=== PATIENT | female | born 1955 | race Caucasian/White ===

== ENCOUNTER 2018-01-02 17:51 | Inpatient (IN) | payer BC, MEDICARE ==
[2018-01-02] MEDS ORDERED: OXYMETAZOLINE NASAL SPRAY 15 ML BTTL ONE (18:01)
[2018-01-02] MEDS ORDERED: SODIUM CHLORIDE 0.9% 1000ML 1,000 ML IVS ONE (18:28)
--- NOTE | 2018-01-02 18:38 | ED.PDOC ---
History of Present Illness - General Chief Complaint: General Stated Complaint: Bleeding from nose/mouth and eyes Time Seen by Provider: 01/02/18 17:55 Source: patient Exam Limitations: no limitations - History of Present Illness Initial Comments: The patient is a 62-year-old female presenting to the emergency room secondary to epistaxis out of the left nares the last one half to one hour. She has had mild nosebleeds bleeds before in the distant past. No recent hemorrhages. No oral petechiae. No easy bruising. She did have shoulder surgery approximately one week ago on the right side. She does take Plavix and aspirin as well as Ranexa. No difficulties with breathing. No chest pain. She did receive 2 units of packed red blood cells after the shoulder surgery according to her and her family. No history of any platelet dysfunction or bleeding diatheses otherwise. No palpitations. She does have a history of some recent worsening of her chronic renal insufficiency. No bleeding from the gums. No history of bleeding in the urine. Timing/Duration: 1/2 hour Severity: mild Improving Factors: nothing Worsening Factors: nothing Associated Symptoms: denies symptoms Allergies/Adverse Reactions: Allergies NO KNOWN ALLERGY Allergy (Verified 07/04/14 21:05) Review of Systems - Review of Systems Constitutional: States: no symptoms reported EENTM: States: see HPI Respiratory: States: no symptoms reported Cardiology: States: no symptoms reported Gastrointestinal/Abdominal: States: no symptoms reported Genitourinary: States: no symptoms reported Musculoskeletal: States: see HPI Skin: States: no symptoms reported Neurological: States: no symptoms reported Endocrine: States: no symptoms reported All other Systems: No Change from Baseline Past Medical History (General) - Patient Medical History Hx Stroke: No Hx Cardiac Disorders: Yes - hypercholesterolemia Hx Congestive Heart Failure: No Hx Hypertension: Yes Hx Diabetes: Yes Hx MRSA: Yes - Skin 2010 MRSA Source:: Wound Surgical History: other - Social History Hx Tobacco Use: No - Activities of Daily Living [facility]if applicable[facility] [place] Family Medical History - Family History Mother Living Status: Hx Family Congestive Heart Failure: Yes Physical Exam - Physical Exam General Appearance: Alert, Comfortable, No apparent distress Eye Exam: bilateral normal - he does have some blood coming back of the left lacrimal duct. Ears, Nose, Throat: hearing grossly normal, normal pharynx, other - she does have epistaxis from the left nares. The source is far enough back that I cannot localize it for direct treatment. Neck: full range of motion, supple Respiratory: lungs clear, normal breath sounds, no respiratory distress, no accessory muscle use Cardiovascular/Chest: normal peripheral pulses, no edema, other - regular rate Peripheral Pulses: radial,right: 2+, radial,left: 2+ Gastrointestinal/Abdominal: non tender, soft Rectal Exam: deferred Back Exam: normal inspection Extremity: other - decreased movement of the right upper extremity. Operative site bandage is still in place in the right shoulder. She does have trace edema bilateral lower extremities. Capillary refills less than 2 seconds. Neurologic: loss prevention auditor II-XII nml as tested, alert, normal mood/affect, oriented x 3 Skin Exam: pallor - mild Comments: Vital Signs - 24 hr 01/02/18 01/02/18 18:07 18:38 Temperature 99.5 F Pulse Rate [ 60 60 Left Radial] Respiratory 20 20 Rate Blood Pressure 147/63 148/59 [Left Arm] O2 Sat by Pulse 96 94 L Oximetry Progress - Progress Progress: 01/02/18 18:39 the patient is a 62-year-old female presenting with epistaxis of the left nares far enough back that it cannot be directly treated. External compression fails to control the bleeding. Nasal packing did have to be applied. 12 cc of air were put into the compression packing. Up to another 8 cc can be used if necessary. The patient also failed a trial of Afrin. Blood work shows adequate platelets and a fairly normal PT and PTT. Hemoglobin and hematocrit were 8 and 24. BUN and creatinine were 33 and 1.9 respectively. The patient needs to increase her fluid intake. The patient does need to have her CBC and Chem-8 repeated in the next 3 or 4 days to make sure there is no worsening in these areas. The packing needs to come out in 48-72 hours after soaking with saline and deflating. [place] nasal spray can be used for 5 times daily afterwards to prevent further bleeding. She does need to hold her aspirin and Plavix for the next 3-5 days. admission for observation was offered given her comorbidities. The patient did defer .ER warnings were given for any significant worsening. Departure - Departure Clinical Impression: Left-sided epistaxis Disposition: Discharge to Home or Self Care Condition: Fair Departure Forms: ED Discharge - Pt. Copy, Patient Portal Self Enrollment Instructions: DI for Nosebleed Diet: regular diet Activity: increase activity as tolerated Referrals: ANY COLLINS [Primary Care Provider] - 1-5 Days Additional Instructions: the patient is a 62-year-old female presenting with epistaxis of the left nares far enough back that it cannot be directly treated. External compression fails to control the bleeding. Nasal packing did have to be applied. 12 cc of air were put into the compression packing. Up to another 8 cc can be used if necessary. The patient also failed a trial of Afrin. Blood work shows adequate platelets and a fairly normal PT and PTT. Hemoglobin and hematocrit were 8 and 24. BUN and creatinine were 33 and 1.9 respectively. The patient needs to increase her fluid intake. The patient does need to have her CBC and Chem-8 repeated in the next 3 or 4 days to make sure there is no worsening in these areas. The packing needs to come out in 48-72 hours after soaking with saline and deflating. [place] nasal spray can be used for 5 times daily afterwards to prevent further bleeding. She does need to hold her aspirin and Plavix for the next 3-5 days. admission for observation was offered given her comorbidities. The patient did defer .ER warnings were given for any significant worsening.
--- NOTE | 2018-01-02 20:10 | HP ---
SUPERVISING PHYSICIAN: Hamilton Sim MD CHIEF COMPLAINT: Left naris nosebleed. HISTORY OF PRESENT ILLNESS: This is a 62-year-old female patient who had right shoulder surgery in [place] at [facility] on Wednesday. She was to be discharged from the hospital on Wednesday, but due to her worsening kidney function, which is chronic in nature and postsurgical blood loss, she was not discharged until . She received 2 units of packed red blood cells due to her postoperative blood loss. She lives in [place], but she was discharged to [facility] for rehab. Today, she came to the Emergency Room and had had bleeding from her left naris for about an hour prior to her admission to the Emergency Room. She has a history of nosebleeds in the past. Afrin was used and was unsuccessful. Nasal packing was put in the left naris. Her bleeding stopped, but her lab work showed a hemoglobin of 8.2 with hematocrit of 24.1. Her platelet count was slightly high at 437 with PT at 12.7 , INR 1.13. PT-T was 32.5. Sodium 136, potassium 4.5, chloride 106, carbon dioxide 21, BUN 47, creatinine 1.93, baseline creatinine is about 1.3 to 1.4. Glucose 152. Due to her recent surgery with postoperative anemia as well as the epistaxis and given that she has a low hemoglobin and hematocrit, I was called for admission to the hospital. PAST MEDICAL HISTORY: 1. Chronic renal disease with baseline creatinine of 1.3 to 1.4. 2. Depression with anxiety. 3. Restless leg syndrome. 4. Asthma. 5. Hypertension. 6. Myocardial infarction times three. 7. Diabetes mellitus, type 2, on insulin therapy. 8. Gastroesophageal reflux disease. PAST SURGICAL HISTORY: 1. Coronary artery bypass graft. 2. Cardiac stents times 5. 3. Hysterectomy. 4. Cholecystectomy. 5. Recent right shoulder repair. 6. Pacemaker insertion. OUTPATIENT MEDICATIONS: Per the EMR and awaiting verification. ALLERGIES: CODEINE. SOCIAL HISTORY: She lives in [place], but has recently been discharged to [facility] for physical therapy on her shoulder. She has a distant history of smoking, but quit many years ago. She denies any ETOH or illicit drug use. REVIEW OF SYSTEMS: GENERAL: Negative for fever, fatigue or weight changes. HEENT: As per history of present illness, but denies sinus symptoms or sore throat. RESPIRATORY: Negative for wheezing, coughing or shortness of breath. CARDIAC: Negative for chest pain, palpitations or tachycardia. GASTROINTESTINAL: Negative for nausea, vomiting, diarrhea, constipation. GENITOURINARY: Negative for hematuria, dysuria or polyuria. NEUROLOGIC: Negative for headache, dizziness or seizures. HEMATOLOGIC: Denies any other signs and symptoms of bleeding except she does have a bruise on her right upper arm that was new today. PHYSICAL EXAMINATION: VITAL SIGNS: Blood pressure 99.5. Pulse 60. Blood pressure 146/54. Respiratory rate 20. O2 saturation 93% on room air. GENERAL: This is a 62-year-old obese female lying in her hospital bed. She is in no acute distress. HEENT: Normocephalic, atraumatic. She has nasal packing in place to the left naris. Oropharynx is clear. There is no obvious bleeding at the posterior pharynx. No bleeding noted from her left naris at this time. RESPIRATORY: Essentially clear to auscultation bilaterally. She is somewhat diminished at the bases. CARDIOVASCULAR: Regular rate and rhythm. GASTROINTESTINAL: Abdomen is soft, obese, nondistended, nontender. Bowel sounds are positive. EXTREMITIES: She has a shoulder sling in place to her right arm. There is a dressing to her right anterior portion of her right shoulder that is dry and intact. Bilateral pedal pulses are +2. There is no cyanosis or edema to her lower extremities. SKIN: She does have a large, 8 to 10 cm bruise on her upper medial portion of her right arm. NEUROLOGIC: Awake, alert and oriented times three. LABORATORY: Labs are as per history of present illness. ASSESSMENT: 1. Anemia, most likely due to postoperative complications, but further complicated by epistaxis episode earlier today. 2. Epistaxis, which may have been complicated by her Ranexa, Plavix and aspirin. 3. Acute on chronic renal failure. 4. Hypertension. 5. Gastroesophageal reflux disease. PLAN: We will place the patient in observation. We will monitor her for bleeding overnight. I will check her CBC and renal function in the morning. She may need an additional 2 units of blood. Hopefully she can be discharged tomorrow. We will hold her Plavix and Ranexa at this time as well as her aspirin. She will need a very close followup, maybe Wednesday or with her primary care physician, Dr. Bazan to monitor the bleeding especially if it is related to her recent surgery. Nose packing will stay in place stay in place until she sees Dr. Bazan. Otherwise, we will monitor the patient closely and follow as needed. Dr. Sim is the collaborating physician and available for consultation. #[id number] [facility]
[2018-01-02] MEDS ORDERED: SODIUM CHLORIDE 0.9% (FLUSH) 10 ML SYG IV PRN (20:42)
[2018-01-02] MEDS ORDERED: DEXTROSE 50% 25 GM/50 ML SYG IV PRN (20:49)
[2018-01-02] MEDS ORDERED: GLUCAGON INJ 1 MG VIAL SUBCU PRN (20:49)
[2018-01-02] MEDS ORDERED: PANTOPRAZOLE SODIUM IV 40 MG VIAL IV SCH (21:00)
[2018-01-02] MEDS ORDERED: IV SET AND CAP CHANGE INJ INJ SCH (21:00)
[2018-01-02] MEDS ORDERED: ALPRAZolam 0.5 MG TAB PO ONE (21:23)
[2018-01-02] MEDS: SODIUM CHLORIDE 0.45% 1000ML 1,000 ML IVS PRN (21:46)
[2018-01-02] MEDS: INSULIN LISPRO 100 UNITS/ML PEN SUBCU SCH (21:48)
[2018-01-02] MEDS ORDERED: NON-FORMULARY MEDICATION 1 EA MIS (Carvedilol [Carvedilol] 6.25 MG) PO SCH (23:15)
[2018-01-02] MEDS ORDERED: CARVEDILOL 3.125 MG TAB ONE (23:18)
[2018-01-02] MEDS: Wellbutrin 100 MG TAB PO SCH (23:30)
[2018-01-03] MEDS ORDERED: FUROSEMIDE INJ 40 MG/4 ML VIAL IV ONE (06:15)
[2018-01-03] MEDS ORDERED: diphenhydrAMINE HCL 50 MG/ML VIAL IV ONE (06:15)
[2018-01-03] MEDS ORDERED: ACETAMINOPHEN 325 MG TAB PO ONE (06:15)
[2018-01-03] MEDS ORDERED: SODIUM CHLORIDE 0.9% 500ML 500 ML IVS SCH (06:30)
[2018-01-03] MEDS: INSULIN LISPRO 100 UNITS/ML PEN SUBCU SCH ×4 (07:38→21:08)
[2018-01-03] MEDS: CITALOPRAM HBR 20 MG TAB PO SCH (09:37)
[2018-01-03] MEDS: CARVEDILOL 3.125 MG TAB PO SCH ×2 (09:37→21:30)
[2018-01-03] MEDS: Wellbutrin 100 MG TAB PO SCH ×3 (09:38→21:30)
[2018-01-03] MEDS: PRAMIPEXOLE 0.25 MG TAB PO SCH ×3 (09:38→21:30)
[2018-01-03] MEDS: amLODIPine BESYLATE 5 MG TAB PO SCH (09:38)
[2018-01-03] MEDS: FUROSEMIDE 40 MG TAB PO SCH (09:39)
[2018-01-03] MEDS: DOCUSATE SODIUM 100 MG CAP PO SCH ×2 (09:39→21:30)
[2018-01-03] MEDS: PANTOPRAZOLE SODIUM TAB 40 MG PO SCH (12:05)
--- NOTE | 2018-01-03 13:09 | PN ---
DATE: 01/03/18 SUBJECTIVE: The patient is quite pale and remains quite weak. She had recently been admitted to [facility] for continued rehabilitation after her recent orthopedic procedure. She was found to be very anemic when she came into the hospital last evening, but is even worse as of today. Further investigation to rule out GI blood loss must be continued. She had a significant epistaxis with left sided packing of the naris required to assist with slowing this down. She is still spitting out some old blood from the back of her throat, but no active bleeding is evident with the nasal packing to remain in place. The patient is short of breath even on some minimal exertion and is unable to participate with rehabilitation. This is requiring at least 2 units of packed red blood cells when her hemoglobin came back this morning at 7.4, showing a significant ongoing decline. OBJECTIVE: VITAL SIGNS: Blood pressure 106/62. Afebrile. Pulse oximetry 93% on room air. LUNGS: Fairly clear. HEART: Regular. LABORATORY: White count 8,500. Hemoglobin has dropped from 8.2 to 7.4 with overnight hydration. INR 1.1. Chemistries show potassium 4.4, BUN has come down from 47 to 44, creatinine from 1.93 to 1.58. Elevated ratio may be related to the absorption of blood. Glucose fasting this morning 170. Calcium 8.2. Magnesium 2.1. Urinalysis is pending. ASSESSMENT: 1. Significant anemia with normocytic/normochromic presentation which is severe to the point of limiting her ability to fully participate in rehabilitation as requested after her recent orthopedic procedures. Two units of packed red blood cells are ordered to be infused. 2. Acute left sided epistaxis of significant nature, possibly complicated because of her significant anticoagulant therapy with Ranexa, Plavix and aspirin. 3. Recent right shoulder surgery at [facility] requiring ongoing rehabilitation which she is receiving at [facility]. 4. Chronic renal failure with an acute exacerbation noted, possibly aggravated by the absorption of blood products from her epistaxis. 5. History of hypertension. 6. History of gastroesophageal reflux disease. PLAN: The patient will be receiving 2 units of packed red blood cells today with a recheck at 1800 hours today and in the morning as well. Await stool Hemoccults to evaluate for GI bleeding contributing to her significant anemic state. The normocytic/normochromic presentation may be related to her chronic renal insufficiency state. Presence of coronary artery disease has been noted. Reevaluation in the morning and continue longterm care and monitoring. #[id number] [facility]
[2018-01-03] MEDS: SODIUM CHLORIDE 0.45% 1000ML 1,000 ML IVS PRN (20:25)
[2018-01-03] MEDS: ATORVASTATIN 20 MG TAB PO SCH (21:30)
[2018-01-03] MEDS: ALPRAZolam 0.5 MG TAB PO SCH (21:30)
[2018-01-03] MEDS: traMADol HCL 50 MG TAB PO PRN (21:50)
[2018-01-04] MEDS ORDERED: TEMAZEPAM 15 MG CAP PO PRN (00:38)
[2018-01-04] MEDS: traMADol HCL 50 MG TAB PO PRN ×2 (04:51→10:46)
[2018-01-04] MEDS: PANTOPRAZOLE SODIUM TAB 40 MG PO SCH (06:20)
[2018-01-04] MEDS: INSULIN LISPRO 100 UNITS/ML PEN SUBCU SCH ×4 (07:58→21:03)
[2018-01-04] MEDS: CARVEDILOL 3.125 MG TAB PO SCH ×2 (09:16→20:41)
[2018-01-04] MEDS: CITALOPRAM HBR 20 MG TAB PO SCH (09:17)
[2018-01-04] MEDS: Wellbutrin 100 MG TAB PO SCH ×2 (09:17→20:41)
[2018-01-04] MEDS: PRAMIPEXOLE 0.25 MG TAB PO SCH ×3 (09:17→20:41)
[2018-01-04] MEDS: FUROSEMIDE 40 MG TAB PO SCH (09:17)
[2018-01-04] MEDS: amLODIPine BESYLATE 5 MG TAB PO SCH (09:17)
[2018-01-04] MEDS: DOCUSATE SODIUM 100 MG CAP PO SCH ×2 (09:17→20:41)
[2018-01-04] MEDS ORDERED: MORPHINE SULFATE INJ 10 MG/ML VIAL IV PRN (09:18)
--- NOTE | 2018-01-04 10:23 | PN ---
DATE: 01/04/18 SUBJECTIVE: The patient is sitting up, but is in increasingly more pain today than yesterday. She has been on Tramadol because of significant codeine and hydrocodone allergies which result in mental status changes in the past. She has significant ecchymosis around the right shoulder where she has had a total joint replacement, no doubt contributing to some of the increased pain. Her blood count has been quite low, yesterday requiring 2 units of packed red blood cells which showed hemoglobin up to 10 after 2 units of packed red blood cells, but overnight has dropped to 8.9. The patient is currently a resident at [facility] having recently arrived there this past weekend for rehabilitation after her right shoulder replacement joint surgery. With hemoglobin in the low 7s as of yesterday and/or going down again towards that same number even after 2 units of packed red blood cells, the patient would not be the best rehab candidate when returned back to [facility]. Reevaluation is necessary. Still with some oozing of old as well as some slight reddish blood from her left sided epistaxis. OBJECTIVE: VITAL SIGNS: Afebrile. Pulse 60. Blood pressure 146/54. Pulse oximetry 93% on room air. LUNGS: Clear. HEART: Regular. ABDOMEN: Obese, yet soft. EXTREMITIES: There is significant ecchymosis and some soft tissue edema surrounding the right shoulder where surgery for replacement of the right shoulder joint has been completed. No paresthesias. LABORATORY: Hemoglobin has dropped from 10 last evening after 2 units of packed red blood cells down to 8.9 this morning. To have continued following to evaluate the level of equalization of her blood count to more fully evaluate her rehab potential. Potassium 3.9, BUN down from 44 yesterday to 36 and creatinine is improved from 1.58 to 1.50. ASSESSMENT: 1. Significant anemia postoperative replacement of right total shoulder. Normocytic/ normochromic in presentation, severe to the point of limiting her ability to fully participate in rehabilitation at [facility] and having received 2 units of packed red blood cells with hemoglobin improving to 10 and then decreasing overnight to 8.9, suggesting the possibility of continued blood loss and equilibration. Reevaluation to continue. May require another 1 or 2 units of blood by in the morning. 2. Acute postoperative right shoulder arthroplastic surgery at [facility], requiring ongoing rehabilitation at [facility] with physical therapy evaluation today to make suggestions. 3. Acute left sided epistaxis significantly requiring intranasal packing with the patient being on several anticoagulant preparations from her previous past history. 4. Chronic renal failure with an acute exacerbation, showing some improvement as fluid and support has continued. Nasal packing has been in for 48 hours soon and will hopefully be removed by in the morning and observed. 5. History of hypertension. 6. History of gastroesophageal reflux disease. 7. History of increased pain requiring parenteral medications including Toradol on a regular basis with p.r.n. morphine low dose to assist with breakthrough pain. PLAN: The patient will be admitted to the hospital for continued more vigorous evaluation and treatment. Toradol 15 mg IV q.8h. to be given on a scheduled basis for the next 1-1/2 days as observation continues. Morphine for breakthrough pain. Check stools for GI bleeding. Physical therapy to evaluate for rehab potential. Recheck lab in the morning. May benefit with repeat RBC transfusion if needed to assist with rehab potential. Consider saline into the nose repetitively beginning today in anticipation of removal of nasal packing in the morning and stabilization before final discharge home if stable. #[id number] [facility]
[2018-01-04] MEDS: SODIUM CHLORIDE 0.65% NASAL SPRAY 45 ML BTTL BNAS SCH ×4 (10:42→20:42)
[2018-01-04] MEDS: KETOROLAC TROMETHAMINE INJ 30 MG/ML VIAL IV SCH ×2 (10:43→17:50)
[2018-01-04] MEDS: SODIUM CHLORIDE 0.45% 1000ML 1,000 ML IVS PRN ×2 (10:45→23:47)
[2018-01-04] MEDS: ATORVASTATIN 20 MG TAB PO SCH (20:41)
[2018-01-04] MEDS: ALPRAZolam 0.5 MG TAB PO SCH (20:41)
[2018-01-05] MEDS: KETOROLAC TROMETHAMINE INJ 30 MG/ML VIAL IV SCH ×2 (01:12→09:29)
[2018-01-05] MEDS: traMADol HCL 50 MG TAB PO PRN (06:09)
[2018-01-05] MEDS: PANTOPRAZOLE SODIUM TAB 40 MG PO SCH (06:09)
[2018-01-05 06:23] VITALS: TEMP 98.3
[2018-01-05] MEDS: INSULIN LISPRO 100 UNITS/ML PEN SUBCU SCH ×2 (08:01→12:08)
[2018-01-05] MEDS: FUROSEMIDE 40 MG TAB PO SCH (09:25)
[2018-01-05] MEDS: Wellbutrin 100 MG TAB PO SCH (09:25)
[2018-01-05] MEDS: DOCUSATE SODIUM 100 MG CAP PO SCH (09:26)
[2018-01-05] MEDS: amLODIPine BESYLATE 5 MG TAB PO SCH (09:26)
[2018-01-05] MEDS: CARVEDILOL 3.125 MG TAB PO SCH (09:26)
[2018-01-05] MEDS: CITALOPRAM HBR 20 MG TAB PO SCH (09:26)
[2018-01-05] MEDS: PRAMIPEXOLE 0.25 MG TAB PO SCH (09:28)
[2018-01-05] MEDS: SODIUM CHLORIDE 0.65% NASAL SPRAY 45 ML BTTL BNAS SCH ×2 (09:31→13:39)
[2018-01-05 12:33] VITALS: BP 152/64; O2SAT 96
[2018-01-05] MEDS ORDERED: KETOROLAC TROMETHAMINE INJ 30 MG/ML VIAL IV ONE (14:05)
--- NOTE | 2018-01-05 21:36 | DS ---
SUPERVISING PHYSICIAN: Chriss Tran M.D. DISCHARGE DIAGNOSIS: 1. Anemia postoperative status post replacement of right total shoulder with a normocytic/normochromic presentation resulting in severe limiting activities to participate in physical activity requiring transfusion of 2 units of packed red blood cells with good response and showing to be stable prior to discharge. 2. Acute postoperative right shoulder arthroplastic surgery at [facility], requiring ongoing rehabilitation with physical therapy evaluation for outpatient therapy arranged. 3. Acute left sided epistaxis significantly requiring intranasal packing with the patient having been on Plavix and aspirin showing to be stable once removed. 4. Chronic renal failure with an acute exacerbation, improving with fluids and transfusion of 2 units packed red blood cells. 5. History of hypertension. 6. History of gastroesophageal reflux disease. 7. History of increased pain requiring parenteral medications including Toradol on a p.r.n. basis with morphine while in the hospital showing good response with Toradol and at discharge on Tramadol. REASON FOR HOSPITALIZATION: Ms. Pennington is a 62-year-old female patient who had right shoulder surgery in [place] at [facility] this past Wednesday. She was discharged home from the hospital on Wednesday, but due to worsening kidney function, which is chronic in nature and postsurgical blood loss, she was discharged on . She received 2 units of packed red blood cells due to her postoperative blood loss. She lives in [place], but she was discharged to [facility] for rehab purposes. On date of admission, she came to the Emergency Room and had a nose bleed from her left nares for about an hour prior to admission to the Emergency Room. She does have a history of nosebleeds in the past and has utilized Afrin, but had no success in hemostasis. Nasal packing was completed in the left nares with hemostasis achieved. Her blood work showed that she was significantly anemic with a hemoglobin of 8.2 with hematocrit of 24.1. She was admitted to the Medical/ Surgical floor due to her recent surgery and postoperative anemia with ongoing epistaxis and admitted in stable condition. LABORATORY STUDIES: CBC on admission showed hemoglobin 8.2, hematocrit 24.1 with platelet count 437,000. White count showed to be stable at 9,400. She did receive 2 units of packed red blood cells when it was noted that her hemoglobin dropped down to 7.4 and 22.0 after receiving fluids. After transfusion, she stabilized and prior to discharge her hemoglobin was 9.4, hematocrit 28.7 with platelet count 379,000. Differential has shown to be with a mild left shift. Again, white count was normal at 9,800. Coagulation studies showed just a slightly elevated PT of 12.7, PTT was normal. Chemistries on admission showed normal electrolytes. Initial BUN was 47, creatinine 1.93. After treatment initiation and fluids, and 2 units of packed red blood cells, at discharge electrolytes were within normal limits. BUN was down to 33, creatinine 1.152. Blood sugars were fairly elevated between 164 and 246. Calcium at discharge was 8.2. Urinalysis on admission was within normal limits. She had 1 occult blood that was positive. No additional specimens were submitted. RADIOLOGY: No radiographic studies were obtained while in the hospital. HOSPITAL COURSE: Ms. Pennington was admitted from the [facility] after she had a left nares nasal packing for epistaxis which resulted in good hemostasis. She did show significant anemia and received 2 units of packed red blood cells which she tolerated well. Initially when she came in, she was significantly weakened but after transfusion and treatment was showing dramatic improvement in her physical efforts and had a physical therapy evaluation. The patient had voiced that she wanted to go home rather than to return back to [facility]. It was found that on evaluation, she was stable enough and recommendations were that she could go home on either home health or outpatient physical therapy, and was safe to do so. She had continued to have hemostasis for the entire hospitalization. On the morning of discharge, nasal saline had been utilized prior to removal of the nasal packing and this was removed after the bulb was deflated. No additional epistaxis was noted. She remained with hemostasis. She continued to show improvement and was showing no clinical suspicion for an acute loss of blood related to the anemia, and had actually shown improvement in her renal function after she had received the 2 units of packed red blood cells. The patient is now showing to be clinically stable and is to be discharged home. PLAN: Ms. Pennington was discharged on 01/05/18 with instructions to followup with her primary care physician, Dr. Brooks Bazan, in the next week. She was to utilize [place] in the nasal passages at least 5 times a day to prevent further bleeding. She was encouraged to have no aggressive nasal care such as aggressive blowing of the nose or using tissues directly in the nasal passages to clear secretions. She was to hold her aspirin and Plavix for at least the next 3 to 5 days and to resume as previous to hospitalization. Physical Therapy had made arrangements for her to have physical therapy as an outpatient and arrangements for those to be called after discharge. She was told to return to the hospital should she have any concerning symptoms or recurrence of the bleeding. Diet at discharge was diabetic diet. Activity is to increase as tolerated. No pushing or pulling with the left arm. She was to followup with rehab in regards to continued rehabilitation. No new medications were prescribed at discharge. She was discharged in stable condition and improved. #[id number] [facility]
== END 2018-01-06 13:00 | disposition home or self-care (01) | DRG 812 ==
LOC: ER 17:51 → MS 20:09 → UNDOADMOB 20:09 → ER 20:53 → OBSVTOIN 01-04 09:28 → MS 01-04 09:28 → INTOOBSV 01-04 09:28 → UNDODISIN 01-05 13:12
PROVIDERS: ADMIT Nurse Practitioner Acute Care; ATTEND Nurse Practitioner Family
PROC: 2Y41X5Z Packing of Nasal Region using Packing Material (ICD-10-PCS; 2018-01-02)
PROC: 30233N1 Transfusion of Nonautologous Red Blood Cells into Peripheral Vein, Percutaneous Approach (ICD-10-PCS; principal; 2018-01-03)
DX: D62 Acute posthemorrhagic anemia (principal); N17.9 Acute kidney failure, unspecified; I13.0 Hypertensive heart and chronic kidney disease with heart failure and stage 1 through stage 4 chronic kidney disease, or unspecified chronic kidney disease; R04.0 Epistaxis; E66.9 Obesity, unspecified; N18.9 Chronic kidney disease, unspecified; F41.8 Other specified anxiety disorders; G25.81 Restless legs syndrome; E78.00 Pure hypercholesterolemia, unspecified; G89.18 Other acute postprocedural pain; E11.22 Type 2 diabetes mellitus with diabetic chronic kidney disease; K21.9 Gastro-esophageal reflux disease without esophagitis; I25.2 Old myocardial infarction; Z96.611 Presence of right artificial shoulder joint; Z95.0 Presence of cardiac pacemaker; Z95.1 Presence of aortocoronary bypass graft; Z95.5 Presence of coronary angioplasty implant and graft; Z88.5 Allergy status to narcotic agent; Z87.891 Personal history of nicotine dependence; Z79.02 Long term (current) use of antithrombotics/antiplatelets; E87.71 Transfusion associated circulatory overload; J44.9 Chronic obstructive pulmonary disease, unspecified; T45.525A Adverse effect of antithrombotic drugs, initial encounter; T46.995A Adverse effect of other agents primarily affecting the cardiovascular system, initial encounter; Y92.009 Unspecified place in unspecified non-institutional (private) residence as the place of occurrence of the external cause; I50.9 Heart failure, unspecified

== ENCOUNTER 2018-01-05 23:28 | Inpatient (IN) | payer MEDICARE ==
[2018-01-06] MEDS ORDERED: FUROSEMIDE INJ 40 MG/4 ML VIAL IV ONE (00:03)
[2018-01-06] MEDS ORDERED: methylPREDNISolone SODIUM SUC 125 MG/2 ML VIAL IV ONE (00:06)
[2018-01-06] MEDS ORDERED: diphenhydrAMINE HCL 25 MG CAP PO ONE (00:07)
--- NOTE | 2018-01-06 01:28 | RAD ---
EXAM DESCRIPTION: Chest,2 Views CLINICAL HISTORY: sob/wheezing 1 day after transfusion COMPARISON: 07/04/2014 FINDINGS: Frontal and lateral views of the chest. Atherosclerotic calcification of the thoracic aorta. Cardiomegaly. Prior median sternotomy. Left sided pacemaker. Pulmonary vascular congestion. No consolidation, pneumothorax, or pleural effusion. Postoperative change of the right shoulder. No acute osseous abnormalities. Upper abdominal soft tissues are unremarkable. IMPRESSION: 1. Cardiomegaly with pulmonary vascular congestion. Electronically signed by: Fer Jacobs 01/06/2018 1:27 AM [facility]
--- NOTE | 2018-01-06 01:37 | ED.PDOC ---
History of Present Illness - General Chief Complaint: Respiratory Problem Stated Complaint: breathing difficulty Time Seen by Provider: 01/05/18 23:44 Source: patient Exam Limitations: no limitations - History of Present Illness Initial Comments: the patient is a 62-year-old female presenting to emergency room secondary to worsening shortness of breath. The patient was just recently in the hospital for significant anemia and acute renal failure. She received several units of packed blood cells and some IV fluids which were appropriate. She was feeling good when she went home from the hospital however the over the next 6 hours she started feeling more short of breath. The patient does have increased edema from her baseline and she does have wet rales bilaterally as well as occasional scattered wheezes. She did take a breathing treatment prior to arrival here. Her oxygen saturations upon arrival ranged from 90-92%. She does have mild to moderate increased work of breathing. No chest pain. No palpitations. She is anxious. No significant bleeding from the nose. Timing/Duration: 4-6 hours Severity: moderate Improving Factors: nothing Worsening Factors: nothing Associated Symptoms: shortness of breath Allergies/Adverse Reactions: Allergies Codeine Adverse Reaction (Verified 01/02/18 21:11) Home Medications: Ambulatory Orders Alprazolam [Alprazolam Odt] 0.5 mg PO BEDTIME 01/02/18 Amlodipine Besylate 5 mg PO DAILY 01/02/18 Ascorbic Acid [Vitamin C] 500 mg PO DAILY 01/02/18 Aspirin [Aspirin Adult Low Dose] 81 mg PO DAILY 01/02/18 Atorvastatin Calcium [Lipitor] 40 mg PO BEDTIME 01/02/18 Bisacodyl [Dulcolax] 5 mg PO BID PRN 01/02/18 Bupropion HCl 100 mg PO BID 01/02/18 Carvedilol 6.25 mg PO BID 01/02/18 Citalopram Hydrobromide 20 mg PO DAILY 01/02/18 Clopidogrel Bisulfate 75 mg PO DAILY 01/02/18 Docusate Sodium 100 mg PO BID 01/02/18 Furosemide 20 mg PO DAILY 01/02/18 Glucosamine-Chondroitin [Osteo Bi-Flex Regular Str 250-200 mg] 1 tab PO DAILY Insulin Aspart [Novolog] 10 unit SC TIDFD 01/02/18 Insulin Glargine [Toujeo Solostar] 30 unit SC DAILY@0700 01/02/18 Pramipexole Dihydrochloride [Pramipexole Dihydrochlori] 0.125 mg PO TID Ranitidine HCl 150 mg PO BID 01/02/18 Ranolazine [Ranexa] 500 mg PO BID 01/02/18 Tramadol HCl 50 mg PO Q6HR PRN 01/02/18 Review of Systems - Review of Systems Constitutional: States: malaise EENTM: States: no symptoms reported Respiratory: States: cough, orthopnea, short of breath, wheezing Cardiology: States: no symptoms reported Gastrointestinal/Abdominal: States: no symptoms reported Genitourinary: States: no symptoms reported Musculoskeletal: States: no symptoms reported Skin: States: no symptoms reported Neurological: States: no symptoms reported Endocrine: States: no symptoms reported All other Systems: No Change from Baseline Past Medical History (General) - Patient Medical History Hx Seizures: No Hx Stroke: No Hx Asthma: Yes Hx of COPD: No Hx Cardiac Disorders: Yes Hx Congestive Heart Failure: Yes Hx Pacemaker: Yes Hx Hypertension: Yes Hx Diabetes: Yes Hx MRSA: Yes MRSA Source:: Wound Surgical History: coronary bypass surgery, pacemaker, other - Social History Hx Tobacco Use: No Hx Alcohol Use: No Hx Substance Use: No Feels Threatened In Home Enviroment: No Feels Threatened In a Relationship: No Hx Physical Abuse: No Hx Emotional Abuse: No - Female History Patient is a Female of Child Bearing Age (10 -59 yrs old): No Family Medical History - Family History Father Family History: Unknown Living Status: Mother Living Status: Hx Family Congestive Heart Failure: Yes Hx Family Hypertension: Yes Hx Family Stroke: Yes Physical Exam - Physical Exam General Appearance: Alert, Anxious, Ill Appearing Eye Exam: bilateral normal Ears, Nose, Throat: hearing grossly normal, nasal congestion - mild crusted blood from previous epistaxis Neck: full range of motion, supple Respiratory: other - mild accessory muscle use. Mild respiratory distress. Scattered wheezing. Diffuse rales. Cardiovascular/Chest: normal peripheral pulses, regular rate, rhythm Peripheral Pulses: radial,right: 2+, radial,left: 2+, dorsalis pedis,right: 2+, dorsalis pedis,left: 2+ Gastrointestinal/Abdominal: non tender, soft Rectal Exam: deferred Back Exam: no CVA tenderness, no vertebral tenderness Extremity: normal range of motion, non-tender, no calf tenderness, pedal edema Neurologic: battery charger II-XII nml as tested, alert, oriented x 3 Skin Exam: normal color Comments: Vital Signs - 24 hr 01/05/18 01/05/18 01/06/18 23:46 23:49 00:01 Temperature Pulse Rate [ 65 Right Brachial] Respiratory 20 22 Rate Blood Pressure 175/70 [Left Arm] O2 Sat by Pulse 92 L 95 Oximetry 01/06/18 01/06/18 00:05 00:44 Temperature 98.9 F Pulse Rate [ 60 Right Brachial] Respiratory 20 Rate Blood Pressure 137/64 [Left Arm] O2 Sat by Pulse 96 Oximetry Progress - Progress Progress: 01/06/18 01:39 the patient is 62-year-old female presenting to the emergency room with what appears to be a CHF exacerbation. This is likely transfusion associated circulatory overload. At this point in time I do not believe this is a transfusion related acute lung injury. The patient received a nebulizer treatment prior to her arrival here. She did receive a small dose of steroids for her COPD. She did receive a dose of IV Lasix here. She has been placed on low-flow oxygen by nasal cannula. Her work of breathing and respiratory sounds have improved. The patient will be admitted for observation to make sure she continues to improve. She will likely be able to be discharged home tomorrow afternoon if she continues to improve and there are no further complications. No current evidence of any active bleeding. Work of breathing has significantly decreased. - Results/Orders Results/Orders: Laboratory Tests 01/06/18 01/06/18 01/06/18 00:00 00:00 00:00 WBC 12.5 H RBC 3.60 L Hgb 10.3 L Hct 31.4 L MCV 87.3 MCH 28.6 MCHC 32.9 L RDW 18.3 H Plt Count 467 H MPV 7.6 Absolute Neuts (auto) 9.60 H Absolute Lymphs (auto) 1.20 Absolute Monos (auto) 0.90 H Absolute Eos (auto) 0.80 H Absolute Basos (auto) 0.10 Neutrophils % 76.7 Lymphocytes % 9.3 L Monocytes % 6.8 Eosinophils % 6.4 H Basophils % 0.8 PT 11.6 INR 1.030 PTT (SP) 31.9 Sodium 136 Potassium 4.4 Chloride 106 Carbon Dioxide 20 L Anion Gap 14.4 BUN 30 H Creatinine 1.33 H BUN/Creatinine Ratio 22.6 H Random Glucose 211 H Serum Osmolality 284.4 Calcium 8.4 Total Bilirubin 0.7 AST 29 ALT 25 Alkaline Phosphatase 83 Creatine Kinase 99 CK-MB (CK-2) 1.9 CK-MB (CK-2) % Not Reportable Troponin I 0.02 B-Natriuretic Peptide 1120.0 H* Serum Total Protein 6.6 Albumin 3.1 L Globulin 3.5 Albumin/Globulin Ratio 0.9 L EKG shows normal sinus rhythm that does appear to be intermittently paced. No previous EKGs to compare to since her heart attack. She does have Q waves in inferior leads. No definitive ST segment changes otherwise. Mild widening of the QRS complex. Chest x-ray shows cardiomegaly and pulmonary congestion. Departure - Departure Clinical Impression: Transfusion associated circulatory overload Disposition: Admit Patient Referrals: ANY COLLINS [Primary Care Provider] - 1-2 Weeks Home Medications: Ambulatory Orders Alprazolam [Alprazolam Odt] 0.5 mg PO BEDTIME 01/02/18 Amlodipine Besylate 5 mg PO DAILY 01/02/18 Ascorbic Acid [Vitamin C] 500 mg PO DAILY 01/02/18 Aspirin [Aspirin Adult Low Dose] 81 mg PO DAILY 01/02/18 Atorvastatin Calcium [Lipitor] 40 mg PO BEDTIME 01/02/18 Bisacodyl [Dulcolax] 5 mg PO BID PRN 01/02/18 Bupropion HCl 100 mg PO BID 01/02/18 Carvedilol 6.25 mg PO BID 01/02/18 Citalopram Hydrobromide 20 mg PO DAILY 01/02/18 Clopidogrel Bisulfate 75 mg PO DAILY 01/02/18 Docusate Sodium 100 mg PO BID 01/02/18 Furosemide 20 mg PO DAILY 01/02/18 Glucosamine-Chondroitin [Osteo Bi-Flex Regular Str 250-200 mg] 1 tab PO DAILY Insulin Aspart [Novolog] 10 unit SC TIDFD 01/02/18 Insulin Glargine [Toujeo Solostar] 30 unit SC DAILY@0700 01/02/18 Pramipexole Dihydrochloride [Pramipexole Dihydrochlori] 0.125 mg PO TID Ranitidine HCl 150 mg PO BID 01/02/18 Ranolazine [Ranexa] 500 mg PO BID 01/02/18 Tramadol HCl 50 mg PO Q6HR PRN 01/02/18 Decision To Admit - Decistion To Admit Decision to Admit Reason: Medical Nature Decision to Admit Date: 01/06/18 Decision to Admit Time: 01:42
[2018-01-06] MEDS ORDERED: INSULIN LISPRO 100 UNITS/ML PEN SUBCU ONE (01:43)
--- NOTE | 2018-01-06 01:59 | HP ---
SUPERVISING PHYSICIAN: Chriss Tran M.D. CHIEF COMPLAINT: Difficulty breathing. HISTORY OF PRESENT ILLNESS: Ms. Pennington is a 62 year-old female patient that presented to the Emergency Room tonight secondary to worsening shortness of breath. The patient has just been recently discharged from the hospital with significant anemia for which she received 2 units of packed red blood cells. She does have a significant history of acute renal failure. She had gone home and was feeling well, but around 6 hours post discharge she started having some shortness of breath. The patient also noted that she had started developing some edema. She tried a breathing treatment prior to presenting to the Emergency Department which did not provide any significant relief. In the Emergency Room, her initial oxygenations on room air ranged in the low 90s. She was noted to have some increased work of breathing, but denied any chest pains or palpitations. Laboratory studies indicated that she had an elevated BNP of 1120. Creatinine was 1.3. A chest x-ray was completed on admission and per radiology interpretation showed cardiomegaly with pulmonary vascular congestion. The patient was given Lasix 40 mg along with 40 mg of Solu-Medrol and 25 mg of Benadryl with some improvement in her symptoms. The patient is now going to be admitted to the hospital for exacerbation of congestive heart failure. PAST MEDICAL HISTORY: 1. Chronic renal disease with baseline creatinine of 1.3 to 1.4. 2. Depression with anxiety. 3. Restless leg syndrome. 4. Asthma. 5. Hypertension. 6. Myocardial infarction times three. 7. Diabetes mellitus, type 2, on insulin therapy. 8. Gastroesophageal reflux disease. 9. Chronic anemia due to chronic renal disease requiring recent transfusion. PAST SURGICAL HISTORY: 1. Coronary artery bypass graft. 2. Cardiac stents times 5. 3. Hysterectomy. 4. Cholecystectomy. 5. Recent right shoulder repair. 6. Pacemaker insertion. OUTPATIENT MEDICATIONS: 1. Tramadol 50 mg every 6 hours p.r.n. 2. Ranexa 500 mg b.i.d. 3. Ranitidine 150 mg b.i.d. 4. Pramipexole dihydrochloride 0.125 mg t.i.d. 5. Tuojeo solostar 30 units daily. 6. NovoLog 10 units t.i.d. 7. Glucosamine 1 tablet daily. 8. Lasix 20 mg daily. 9. Docusate 100 mg b.i.d. 10. Plavix 75 mg daily. 11. Citalopram 20 mg daily. 12. Carvedilol 6.25 mg b.i.d. 13. Bupropion hydrochloride 100 mg b.i.d. 14. Dulcolax 5 mg b.i.d. p.r.n. 15. Lipitor 40 mg at bedtime. 16. Aspirin low dose 81 mg daily. 17. Ascorbic acid Vitamin C 500 mg daily. 18. Amlodipine mesylate 5 mg daily. 19. Alprazolam 0.5 mg at bedtime. ALLERGIES: CODEINE. FAMILY HISTORY: Noncontributory. SOCIAL HISTORY: She lives in [place], but has recently been discharged to [facility]. She has a distant history of smoking, but quit many years ago. She denies any ETOH or illicit drug use. REVIEW OF SYSTEMS: GENERAL: Negative for any fever, fatigue or weight loss. HEENT: Denies any sinus symptoms, sore throat, nasal congestion. RESPIRATORY: As noted in History of Present Illness, worsening shortness of breath. CARDIOVASCULAR: Denies any chest pains, palpitations or tachycardia. GASTROINTESTINAL: Negative for any nausea, vomiting, diarrhea or constipation. GENITOURINARY: Negative for any hematuria, dysuria or polyuria. NEUROLOGIC: Denies any headaches, dizziness or seizures. HEMATOLOGIC: Denies any worsening bleeding since discharge. No recurrence of epistaxis. PHYSICAL EXAMINATION: VITAL SIGNS: Temperature 98.9, pulse 60, blood pressure 137/64, respirations 20 to 22, satting 90% on nasal cannula at 2 liters at rest. Admission weight 105.7 kg. GENERAL: On admission to the Medical/Surgical floor, the patient appears to be in no acute distress, resting comfortably. Obese but well nourished and well hydrated. HEENT: Tympanic membrane are clear bilaterally. Oropharynx was pink and moist. There is just some mild nasal congestion with a mild crusting of blood from the previous epistaxis to the left nares. NECK: Supple, non-tender with full range of motion. No jugular venous distention. CHEST: Very mild wheezing throughout with diffuse rales, diminished towards the bases. CARDIOVASCULAR: Regular rate and rhythm without appreciable murmurs, gallops, or rubs. ABDOMEN: Obese but soft, non-tender with positive bowel sounds. EXTREMITIES: No clubbing, cyanosis or edema. Her right arm is in a sling status post surgery. There is an old ecchymotic area overlying the right shoulder. Pulses distally were strong. Capillary refill is brisk. NEUROLOGIC: She is alert and oriented times three. Cranial nerves II-XII are grossly intact. Facial features were symmetrical. Extraocular movements are within normal limits. There is no notable nystagmus. LABORATORY: White count is up to 12,500, hemoglobin 10.3, hematocrit 31.4, platelet count 467,000. Differential shows to be without a left shift. Coagulation studies showed a normal PT and PTT. Chemistries showed normal electrolytes with BUN 31, creatinine 1.3. Liver functions are all within normal limits. Calcium 8.4, glucose 211. Troponin is 0.02 with an elevated BNP of 1120. Urinalysis showed 100 protein with trace lysed blood. Microscopic showed to be within normal limits. Blood cultures times 2 are shown to be negative. RADIOLOGY: Chest x-ray per radiology interpretation shows cardiomegaly with pulmonary vascular congestion. ASSESSMENT: 1. Acute exacerbation of congestive heart failure likely etiology from recent blood transfusion with no recent echocardiogram available for review with the patient showing good response with Lasix and radiographic studies indicating pulmonary congestion. 2. Type 2 diabetes on insulin. 3. Recent hospitalization for epistaxis and anemia requiring transfusion of 2 units packed red blood cells possibly contributing to exacerbation of #1 after discharge. 4. Recent right shoulder surgery. 5. Chronic renal failure with recent hospitalization requiring 2 units of packed red blood cells showing improvement prior to discharge. 6. History of hypertension. 7. Gastroesophageal reflux disease. 8. Restless leg syndrome. 9. Depression and anxiety. PLAN: The patient will be admitted to the Medical/Surgical floor for further treatment and evaluation. She was given Lasix in the E. R. This will be continued with 20 mg b.i.d. with close monitoring of her I's and O's. She will be provided oxygen as needed. Will put her on fluid restrictions of less than 1500 mL per 24 hours. Her medications will be resumed once they have been updated and verified in the medical records. She will be resumed on a sliding scale per insulin protocol. She will be started on DVT prophylaxis as per protocol. Will anticipate her length of stay to be at least 2 to 3 days. Will closely monitor her I's and O's and her weight. Once she has shown to be clinically stable, she will certainly be discharged to have close clinical followup in the outpatient setting. Until then, will continue to monitor and treat appropriately. #[id number] [facility]
[2018-01-06] MEDS ORDERED: SODIUM CHLORIDE 0.9% (FLUSH) 10 ML SYG IV PRN (03:29)
[2018-01-06] MEDS ORDERED: NITROGLYCERIN 0.4 MG 25 EA TAB SL PRN (03:29)
[2018-01-06] MEDS ORDERED: IV SET AND CAP CHANGE INJ INJ SCH (03:30)
[2018-01-06] MEDS ORDERED: GLUCAGON INJ 1 MG VIAL SUBCU PRN (03:44)
[2018-01-06] MEDS ORDERED: DEXTROSE 50% 25 GM/50 ML SYG IV PRN (03:44)
[2018-01-06] MEDS: INSULIN LISPRO 100 UNITS/ML PEN SUBCU SCH ×4 (07:18→21:45)
[2018-01-06] MEDS: NON-FORMULARY MEDICATION 1 EA MIS (Insulin Glargine [Toujeo Solostar] 30 UNIT) SC SCH (12:00)
[2018-01-06] MEDS ORDERED: GLUCOSAMINE CHONDROITIN PO SCH (12:00)
[2018-01-06] MEDS: Wellbutrin 100 MG TAB PO SCH ×2 (13:26→20:17)
[2018-01-06] MEDS: CLOPIDOGREL 75 MG TAB PO SCH (13:26)
[2018-01-06] MEDS: RANOLAZINE 500 MG TAB PO SCH ×2 (13:27→20:16)
[2018-01-06] MEDS: ASCORBIC ACID 500 MG TAB PO SCH (13:27)
[2018-01-06] MEDS: PRAMIPEXOLE 0.25 MG TAB PO SCH ×3 (13:27→20:17)
[2018-01-06] MEDS: ASPIRIN (CHEWABLE) 81 MG TAB PO SCH (13:27)
[2018-01-06] MEDS: CARVEDILOL 3.125 MG TAB PO SCH ×2 (13:28→20:16)
[2018-01-06] MEDS: amLODIPine BESYLATE 5 MG TAB PO SCH (13:28)
[2018-01-06] MEDS: FUROSEMIDE INJ 20 MG/2 ML VIAL IV SCH ×2 (13:29→17:09)
[2018-01-06] MEDS: CITALOPRAM HBR 20 MG TAB PO SCH (13:29)
[2018-01-06] MEDS: DOCUSATE SODIUM 100 MG CAP PO SCH ×2 (13:29→20:17)
[2018-01-06] MEDS ORDERED: ATORVASTATIN 20 MG TAB PO ONE (16:05)
[2018-01-06] MEDS ORDERED: ALPRAZolam 0.5 MG TAB ONE (16:06)
[2018-01-06] MEDS: traMADol HCL 50 MG TAB PO PRN (20:19)
[2018-01-06] MEDS ORDERED: ALPRAZolam 0.5 MG TAB PO SCH (21:00)
[2018-01-06] MEDS ORDERED: ATORVASTATIN 20 MG TAB PO SCH (21:00)
--- NOTE | 2018-01-07 06:36 | RAD ---
EXAM DESCRIPTION: Chest,1 View CLINICAL HISTORY: CHF exacerbation COMPARISON: 01/06/2018 FINDINGS: Frontal and lateral views of the chest. Atherosclerotic calcification of the thoracic aorta. Cardiomegaly. Prior median sternotomy. Left sided pacemaker. Pulmonary vascular congestion. No consolidation, pneumothorax, or pleural effusion. Postoperative change of the right shoulder. No acute osseous abnormalities. Upper abdominal soft tissues are unremarkable. IMPRESSION: 1. Stable appearance of the chest. Electronically signed by: Fer Jacobs 01/07/2018 6:34 AM [facility]
[2018-01-07] MEDS: INSULIN LISPRO 100 UNITS/ML PEN SUBCU SCH ×2 (07:19→11:45)
[2018-01-07] MEDS: NON-FORMULARY MEDICATION 1 EA MIS (Insulin Glargine [Toujeo Solostar] 30 UNIT) SC SCH (07:54)
[2018-01-07] MEDS: DOCUSATE SODIUM 100 MG CAP PO SCH (08:55)
[2018-01-07] MEDS: CARVEDILOL 3.125 MG TAB PO SCH (08:55)
[2018-01-07] MEDS: CITALOPRAM HBR 20 MG TAB PO SCH (08:55)
[2018-01-07] MEDS: ASPIRIN (CHEWABLE) 81 MG TAB PO SCH (08:55)
[2018-01-07] MEDS: RANOLAZINE 500 MG TAB PO SCH (08:56)
[2018-01-07] MEDS: FUROSEMIDE INJ 20 MG/2 ML VIAL IV SCH (08:56)
[2018-01-07] MEDS: Wellbutrin 100 MG TAB PO SCH (08:56)
[2018-01-07] MEDS: ASCORBIC ACID 500 MG TAB PO SCH (08:56)
[2018-01-07] MEDS: CLOPIDOGREL 75 MG TAB PO SCH (08:56)
[2018-01-07] MEDS: PRAMIPEXOLE 0.25 MG TAB PO SCH (08:56)
[2018-01-07] MEDS: amLODIPine BESYLATE 5 MG TAB PO SCH (08:58)
[2018-01-07] MEDS: traMADol HCL 50 MG TAB PO PRN (09:21)
[2018-01-07 10:35] VITALS: BP 150/58; TEMP 97
[2018-01-07 14:45] VITALS: O2SAT 95
--- NOTE | 2018-01-21 16:49 | DS ---
SUPERVISING PHYSICIAN: Chriss Tran M.D. DISCHARGE DIAGNOSIS: 1. Acute exacerbation of congestive heart failure etiology felt to be from recent blood transfusion with no recent echocardiogram available for review with the patient showing good response with Lasix and radiographic studies indicating initially pulmonary congestion but the patient showing good clinical response with continued Lasix prior to discharge. 2. Type 2 diabetes on insulin. 3. Recent hospitalization for epistaxis and anemia that required 2 units of blood transfusion that contributed to exacerbation of #1 after discharge. 4. Recent right shoulder surgery. 5. Chronic renal failure with recent hospitalization requiring 2 units of packed red blood cells showing improvement prior to discharge. 6. History of hypertension. 7. Gastroesophageal reflux disease. 8. Restless leg syndrome. 9. Depression and anxiety. REASON FOR HOSPITALIZATION: Ms. Pennington is a 62 year-old female patient that presented to the Emergency Room on the night of 01/06/18 secondary to worsening shortness of breath. The patient had been recently discharged from the hospital with significant anemia for which she received 2 units of packed red blood cells. She does have a significant history of acute renal failure. She had gone home and was feeling well, but around 6 hours post discharge she started having some shortness of breath. The patient noted that she had started developing some edema. She tried a breathing treatment prior to presenting to the Emergency Department which did not provide any significant relief. In the Emergency Room, her initial oxygenations on room air showed to be in the low 90s. She was noted to have some increased work of breathing, but denied any chest pains or palpitations. Laboratory studies indicated that she had an elevated BNP of 1120. Creatinine was 1.3. A chest x-ray was completed on admission in the Emergency Department per radiology interpretation showed cardiomegaly with pulmonary vascular congestion. The patient was given Lasix 40 mg along with 40 mg of Solu-Medrol and 25 mg of Benadryl with some improvement in her symptoms. The patient was then placed in Observation in the hospital for acute exacerbation of congestive heart failure secondary to a recent blood transfusion. HOSPITAL COURSE: Ms. Pennington was admitted on 01/06/18. She was diuresed with Lasix that started in the E. R. that continued prior to discharge. She showed good response as well as was on fluid restrictions. Clinically she showed good improvement and was no longer having dyspnea. She was felt clinically well enough and progressed at that time to be discharged home. PLAN: Ms. Pennington was discharged on 01/07/18 to be admitted to [facility]. She was to followup with Dr. Bazan. She was instructed that she would double her Lasix and potassium on Wednesday and resume her regular scheduled medications starting on Wednesday. She was to limit her daily fluids in 24 hours to less than 1800 mL. She was told to return to the hospital should she have any concerning symptoms. She was encouraged that she should have a followup for future echocardiogram and to call Dr. Bazan for a scheduled appointment. No additional medications were provided at discharge. She was to resume all previous medications. Diet at discharge was low salt, 1800 calorie ADA diet. Activity is as per Physical Therapy. No pulling or pushing with her right arm due to the status postoperative condition other than directed by Physical Therapy. Condition at discharge was stable and improved. #[id number] [facility]
== END 2018-01-07 14:26 | DRG 641 ==
LOC: ER 23:28 → MS 01-06 01:58 → OBSVTOIN 01-06 01:58
PROVIDERS: ADMIT Nurse Practitioner Family; ATTEND Nurse Practitioner Family
DX: E87.71 Transfusion associated circulatory overload (principal); I50.9 Heart failure, unspecified; N18.9 Chronic kidney disease, unspecified; E11.22 Type 2 diabetes mellitus with diabetic chronic kidney disease; J44.9 Chronic obstructive pulmonary disease, unspecified; K21.9 Gastro-esophageal reflux disease without esophagitis; G25.81 Restless legs syndrome; F32.9 Major depressive disorder, single episode, unspecified; F41.9 Anxiety disorder, unspecified; Z88.5 Allergy status to narcotic agent; Z79.82 Long term (current) use of aspirin; Z79.02 Long term (current) use of antithrombotics/antiplatelets; Z79.4 Long term (current) use of insulin; Z79.899 Other long term (current) drug therapy; Z95.0 Presence of cardiac pacemaker; Z95.1 Presence of aortocoronary bypass graft

== ENCOUNTER → 2019-01-04 | Outpatient (CLI) | payer MEDICARE, OTHER ==
--- NOTE | 2019-01-04 13:10 | US ---
EXAM DESCRIPTION: Abdomen,Complete: Ultrasound. CLINICAL HISTORY: ABDOMINAL DISTENSION (GASEOUS) COMPARISON: None Available. TECHNIQUE: Transabdominal scannin-dimensional and Doppler modes. FINDINGS: Gallbladder: Prior cholecystectomy. No fluid in the gallbladder fossa. Nontender with transducer pressure. Common bile duct: 4 mm normal caliber. Liver: Long axis of the right lobe 14.8 cm. Normal echogenicity. Normal direction of flow in the hepatic and portal veins. Capsule smooth where seen. No ascites. Normal caliber ducts. Pancreas: Normal echogenicity of the included organ and pancreatic duct not seen.. Abdominal aorta: Normal caliber from the proximal segment to the distal bifurcation. IVC: visualized; normal caliber. Spleen normal echogenicity; long axis measurement is 12.5 cm. cm. Right kidney: 9.5 cm long axis. Normal cortical thickness and echogenicity. No hydronephrosis or perinephric fluid. Left kidney: 9.7 cm long axis. Normal cortical thickness echogenicity. No hydronephrosis or perinephric fluid. . Right pleural effusion. IMPRESSION: 1. Normal ultrasound of the abdomen post cholecystectomy. No free fluid. Normal caliber of the ducts and normal size of the included organs. 2. Right pleural effusion. Consider correlation with chest x-ray. Electronically signed by: Marcos Middleton MD 01/04/2019 1:07 PM [employer]
== END ==
LOC: US 08:35
PROVIDERS: ATTEND Emergency Medicine
DX: R14.0 Abdominal distension (gaseous) (principal); J90 Pleural effusion, not elsewhere classified

== ENCOUNTER → 2020-08-26 | Outpatient (CLI) | payer MEDICARE, OTHER | LOC: LAB.O 13:26 | PROVIDERS: ATTEND Internal Medicine Nephrology | DX: N18.4 Chronic kidney disease, stage 4 (severe) (principal) ==